=== PATIENT | female | born 1985 | race Caucasian/White ===

== ENCOUNTER 2016-12-10 11:16 | Day surgery (SDC) | payer MEDICAID ==
[2016-12-09 10:59] VITALS: BMI 22.4
--- NOTE | 2016-12-10 06:20 | CP.SDSHP ---
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 Evaluated Today:Candidate for Anesthesia & Procedure: Yes - Date & Time Date: 12/10/16 Time: 06:19 Short Stay Discharge - Short Stay Discharge Admitting Diagnosis/Reason for Visit: MISSED Disposition: HOME/ ROUTINE Follow-up: F/U with Dr Baez in 2 weeks Additional Instructions (Diet, Activity): Pelvic rest for 2 weeks Progress Note/Discharge Note with Instructions: Pt is s/p suction d and c for a missed . Pt is clinically stable and would be discharged home upon recovery from anesthesia.
[2016-12-10] MEDS ORDERED: Lactated Ringer's 1,000 ML IV ONE (13:25)
[2016-12-10] MEDS ORDERED: ceFAZolin IV 1 gm in Dextrose 1 GM/50 ML BAG IVPB ONE (13:33)
[2016-12-10] MEDS ORDERED: Propofol 10 mg/ml Inj (20 ML) ONE ×2 (13:33→14:02)
[2016-12-10] MEDS ORDERED: Midazolam 2 MG/2 ML VIAL ONE ×2 (13:34→13:41)
[2016-12-10] MEDS ORDERED: HYDROmorphone 0.5 mg/0.5 ml ISec IVP PRN (13:56)
[2016-12-10] MEDS ORDERED: Oxytocin 10 Units/ml Inj ONE (14:05)
--- NOTE | 2016-12-10 14:20 | PCM.SURG1 ---
Surgeon's Initial Post Op Note - Surgeon's Notes Surgeon: Dr Baez Barrel Rifler: None Type of Anesthesia: General Endo Anesthesia Administered By: JOSÉ MIGUEL Zambrano Supervised by Dr Hoyt Pre-Operative Diagnosis: Missed Operative Findings: 6-8wk sized retroverted uterus sounded to a deapth of 8cm. Copious amounts of old products of conception suctioned and curreted from the endometrial cavity. IV Fluid intake - 1000mls. EBL- 50mls. Urine Output- 50mls mls. Post-Operative Diagnosis: Same as preop diagnosis Operation Performed: Suction D and C Specimen/Specimens Removed: Endometrial curretings Estimated Blood Loss: EBL {In ML}: 50 Post-Op Condition: Good Date of Surgery/Procedure: 12/10/16 Time of Surgery/Procedure: 14:21
[2016-12-10 16:13] VITALS: BP 109/68; RESP 16; TEMP 97.3; O2SAT 100
[2016-12-10 16:18] VITALS: PULSE 70
--- NOTE | 2016-12-11 00:21 | OP ---
PROCEDURE DATE: 12/10/2016 PREOPERATIVE DIAGNOSIS: A 31-year-old female with a missed . POSTOPERATIVE DIAGNOSIS: A 31-year-old female with a missed . PROCEDURE DONE: Suction dilation and curettage performed on 12/10/2016. SURGEON: Tejinder Baez MD TYPE OF ANESTHESIA: General endotracheal. ANESTHESIA ADMINISTERED BY: Kenya VALDEZ and supervised by Dr. Hoyt. OPERATIVE FINDINGS: A 6 to 8-weeks sized retroverted uterus sounded to be repaired of 8 cm. There were copious amounts old products of conception, which were suctioned and curetted from the endometrial cavity. IV FLUID INTAKE: 1000 mL. ESTIMATED BLOOD LOSS: 50 mL. URINE OUTPUT: 50 mL of clear urine. COMPLICATIONS: There were no complications Specimen: Endometrial curettings. DESCRIPTION OF PROCEDURE: After obtaining informed consent, the patient was sent to the OR with IV running. The patient was placed in the supine position on the OR table and after adequate general anesthesia, the patient was repositioned in the dorsal lithotomy position. The patient was then prepped and draped in the sterile fashion. A weighted speculum was put in the posterior wall of the vagina and an L-shaped retractor was used on the anterior wall to expose the cervix. The anterior lip of the cervix was held with a single-toothed tenaculum. The uterus was then sounded to be thereof 8 cm where cervical canal was dilated using the Hegar dilators to about 8 mm dilatation. A flexible suction cannula of 8 mm size was introduced into the endometrial cavity and suction applied. Several passage of the cannula through the endometrial cavity was performed. A sharp curettage using a curette was also performed. During this procedure copious amounts of old products of conception tissue including placental tissue were removed. These were performed alternately till the uterine cavity was empty. All instruments were taken off the vagina and cervix after the procedure. The samples obtained were sent to the histopathology. The patient was then replaced in supine position and was brought to the recovery room awake and in stable condition. All counts of instruments and gauze used were correct x3. Tejinder Baez MD [facility]
== END 2016-12-10 16:14 | disposition home or self-care (01) ==
LOC: C.SDS 11:16
PROVIDERS: ATTEND Obstetrics & Gynecology
DX: O02.1 Missed abortion (principal)
CPT/HCPCS: 36415; 59820; 86850; 86900; 88305; J0690; J1885; J2001; J2250; J2405; J2590; J2704; J3010; J7120